=== PATIENT | female | born 1985 | race Caucasian/White ===

== ENCOUNTER 2017-06-18 22:26 | Emergency (ER) | payer OTHER ==
[~2017-06-18] VITALS: Ht 165.1 cm; Wt 65.0 kg
[~2017-06-18 22:26] MED LIST: CLARITIN D TAB1 TAB PO; DESOGEN 0.15 MG1 TAB PO; LEXAPRO 10MG10 MG PO; PRENATAL1 TA1 PO; PROCARDIA XL 3030 MG PO
[2017-06-18 22:33] VITALS: BP 119/70; TEMP 98.8
[2017-06-18] MEDS ORDERED: MULTIPLE VITAMI1 CAP PO (22:38)
[2017-06-18] MEDS ORDERED: PRILOSEC 20MG20 MG PO (22:39)
[2017-06-18] MEDS ORDERED: GLUCOPHAGE500 MG/TAB PO (22:40)
[2017-06-19 01:20] LABS: COLLECTION METHOD CLEAN CATCH
[2017-06-19 01:25] LABS: PH 5 (5-8); SQUAMOUS EPITHELIAL 0-2 /hpf; URINE APPEARANCE Clear; URINE BACTERIA None Seen /hpf; URINE BILIRUBIN Negative (NEGATIVE); URINE BLOOD Negative (NEGATIVE); URINE COLOR Yellow; URINE GLUCOSE Negative (NEGATIVE); URINE KETONE Negative (NEGATIVE); URINE LEUKOCYTE ESTERASE Negative (NEGATIVE); URINE NITRATE Negative (NEGATIVE); URINE PROTEIN(semi-quant) Negative (NEGATIVE); URINE RBC None Seen /hpf; URINE UROBILINOGEN Negative (NEGATIVE)
[2017-06-19 01:53] LABS: BASO % 0.3 % (0.0-2.0); EOS % 0.2 % (0-4.0); GRAN # 6.8 (1.4-6.5); GRAN % 78.1 % (42.2-75.2); HEMATOCRIT 43.3 % (37.0-47.0); HEMOGLOBIN 14.8 g/dl (12.5-16.0); LYMPH # 1.4 (1.2-3.4); LYMPH % 16.4 % (20.0-51.0); MEAN CELL VOLUME 90 fl (80.0-100.0); MEAN CORPUSCULAR HEMOGLOBIN 31 pg (27.0-31.0); MEAN CORPUSCULAR HGB CONC 34 g/dl (33.0-37.0); MEAN PLATELET VOLUME 9.8 fl (7.4-10.4); MONO # 0.4 (0.1-0.6); MONO % 4.7 % (1.7-9.3); PLATELET COUNT 263 K/mm3 (130-400); RED BLOOD COUNT 4.79 M/mm3 (4.10-5.30)
[2017-06-19 02:04] LABS: ALANINE AMINOTRANSFERASE 25 U/L (9-52); ALBUMIN 4.5 gm/dL (3.5-5.0); ALKALINE PHOSPHATASE 73 U/L (50-136); ANION GAP 11 mmol/L (7-16); AST,SGOT 23 U/L (15-37); BILIRUBIN,TOTAL 0.8 mg/dL (0.0-1.0); BLOOD UREA NITROGEN 15 mg/dL (7-17); CALCIUM 10.3 mg/dL (8.4-10.2); CARBON DIOXIDE 26 mmol/L (22-30); CHLORIDE 102 mmol/L (98-107); CREATININE, serum 0.72 mg/dL (0.52-1.25); GLUCOSE 102 mg/dL (74-106); LIPASE 69 U/L (23-300); POTASSIUM 4.1 mmol/L (3.4-5.0); SODIUM 139 mmol/L (137-145); TOTAL PROTEIN 7.7 gm/dL (6.4-8.2)
[2017-06-19 02:05] LABS: C-REACTIVE PROTEIN < 0.5 mg/dL (0.0-0.9)
[2017-06-19] MEDS ORDERED: PROTONIX 40MG T40 MG PO (02:58)
[2017-06-19] MEDS ORDERED: ZOFRAN ODT4 MG PO (02:58)
[2017-06-19 05:23] VITALS: PULSE 63
== END 2017-06-19 05:25 | disposition home or self-care (01) ==
LOC: COL.ER 22:26
PROVIDERS: Emergency Medicine
DX: R11.2 Nausea with vomiting, unspecified (principal); F17.210 Nicotine dependence, cigarettes, uncomplicated; Z79.84 Long term (current) use of oral hypoglycemic drugs
CPT/HCPCS: J1170; J2550; J7030; Q9967

== ENCOUNTER 2018-08-31 12:27 | Inpatient (IN) | payer BC ==
[~2018-08-31] VITALS: Ht 165.1 cm; Wt 74.1 kg
[2018-08-31] VITALS (13 sets, daily range): BP systolic 125–180; BP diastolic 73–93; PULSE 49–90; TEMP 97.5–98.4
[~2018-08-31 12:27] MED LIST changes: +GLUCOPHAGE500 MG/TAB PO; +MULTIPLE VITAMI1 CAP PO; +PRILOSEC 20MG20 MG PO; +PROTONIX 40MG T40 MG PO; +ZOFRAN ODT4 MG PO
[2018-08-31 12:56] LABS: BASO # 0.1 (0.0-0.2); BASO % 0.4 % (0.0-2.0); EOS % 0.1 % (0-4.0); GRAN # 12.8 (1.4-6.5); GRAN % 78.4 % (42.2-75.2); HEMATOCRIT 39.8 % (37.0-47.0); HEMOGLOBIN 13.9 g/dl (12.5-16.0); LYMPH # 2.4 (1.2-3.4); LYMPH % 14.7 % (20.0-51.0); MEAN CELL VOLUME 92 fl (80.0-100.0); MEAN CORPUSCULAR HEMOGLOBIN 32 pg (27.0-31.0); MEAN CORPUSCULAR HGB CONC 35 g/dl (33.0-37.0); MEAN PLATELET VOLUME 10.8 fl (7.4-10.4); MONO % 5.9 % (1.7-9.3); PLATELET COUNT 263 K/mm3 (130-400); RED BLOOD COUNT 4.32 M/mm3 (4.10-5.30); REDCELL DISTRIBUTION WIDTH-CV 13.3 % (11.5-14.5)
--- NOTE | 2018-08-31 13:15 | NUR ---
1230: Patient onto unit via wheelchair from ER. Patient reports contractions since 1000 and SROM at 1215 while en route to hospital from home in [place]. Patient reports good movement, denies vaginal bleeding. Patient changes into gown, assisted into bed. SVE 6/100/0. 1232: notified, see physician notification. 1235: IV started in left forearm by Gracie RN. See eMAR. 1240: SVE 7-8cm. Patient reports increased urge to push. 1242: notified, see physician notification. 1250: SVE Complete. Patient pushing involuntarily. Infant . This RN supporting perineum. notified, see physican notification. 1253: at bedside. 1255: Spontaneous vaginal delivery of viable female infant assisted by . to abdomen, care assumed by Gracie RN. 1305: Cord separates from placenta. Manual delivery of placenta assisted by . Arthur HENDERSON at bedside for pain management. Fundus firms with massage, moderate amount of lochia noted. 1310: Methergine 0.2mg IM given in left thigh by this RN. 1315: Fundus firm, lochia WNL. Pericare performed. Ice pack in place. Recovery period started.
--- NOTE | 2018-08-31 15:20 | NUR ---
Patient up to bathroom. Voids 800ml clear yellow urine without difficulty. Pericare performed. Gown changed. Underwear and peripad in place. Patient to nursery via wheelchair to watch bath.
[2018-09-01] VITALS (7 sets, daily range): BP systolic 130–156; BP diastolic 73–92; PULSE 48–76; TEMP 97.4–98.5
[2018-09-01 06:57] LABS: HEMOGLOBIN 12.2 g/dl (12.5-16.0)
[2018-09-01 07:01] LABS: HEMATOCRIT 36.5 % (37.0-47.0)
--- NOTE | 2018-09-01 09:09 | NUR ---
Initial visit; Mom thanked for looking in on her and offering congratulations for the of her daughter. Mechanical Design Drafter thanked patient for choosing [facility].
[2018-09-02 06:55] VITALS: BP 141/92; PULSE 62; TEMP 97.7
[2018-09-02] MEDS ORDERED: IBU600 MG PO (09:10)
[2018-09-02] MEDS ORDERED: PROCARDIA XL 3030 MG PO (09:10)
[2018-09-02 11:10] VITALS: BP 158/94; PULSE 54; TEMP 97.7
== END 2018-09-02 14:10 | disposition home or self-care (01) | DRG 807 ==
LOC: LDRO 12:27 → LDR 12:35 → OB 17:15
PROVIDERS: Obstetrics & Gynecology; ADMIT Student in an Organized Health Care Education/Training Program
PROC: 10E0XZZ Delivery of Products of Conception, External Approach (ICD-10-PCS; principal; 2018-08-31)
PROC: 10D17Z9 Manual Extraction of Products of Conception, Retained, Via Natural or Artificial Opening (ICD-10-PCS; 2018-08-31)
PROC: 10J17ZZ Inspection of Products of Conception, Retained, Via Natural or Artificial Opening (ICD-10-PCS; 2018-08-31)
DX: O99.284 Endocrine, nutritional and metabolic diseases complicating childbirth (principal); Z37.0 Single live birth; E28.2 Polycystic ovarian syndrome; Z3A.38 38 weeks gestation of pregnancy; O99.824 Streptococcus B carrier state complicating childbirth; O99.344 Other mental disorders complicating childbirth; F32.9 Major depressive disorder, single episode, unspecified; O71.82 Other specified trauma to perineum and vulva; O73.0 Retained placenta without hemorrhage; O75.89 Other specified complications of labor and delivery; O99.334 Smoking (tobacco) complicating childbirth; F17.210 Nicotine dependence, cigarettes, uncomplicated; Z88.2 Allergy status to sulfonamides; O16.5 Unspecified maternal hypertension, complicating the puerperium
CPT/HCPCS: J2210; J2540; J2590; J3010; J7120